=== PATIENT | male | born 1980 | race Caucasian/White ===

== ENCOUNTER 2018-06-05 18:32 | Emergency (ER) | payer OTHER ==
[~2018-06-05] VITALS: Ht 170.2 cm; Wt 59.7 kg
[~2018-06-05 18:32] MED LIST: ALBUAER19 INH; CLX20 PO; PRED20TA PO; RISP1TAB3 PO; TIZA4CAP PO
[2018-06-05 18:37] VITALS: TEMP 36.7; Ht 170.2 cm; Wt 59.7 kg
[2018-06-05] MEDS ORDERED: KETOROLAC TROMETHAMINE 60 MG/2 ML VIAL IM STA (18:48)
--- NOTE | 2018-06-05 19:53 | DIAGNOSTIC IMAGING REPORT ---
THORACIC SPINE 3 VIEWS ROUTINE HISTORY: Pain. Neuropathy. Back pain COMPARISON: None. FINDINGS: Findings consistent with laminectomy and fusion of the mid to lower thoracic region. Pre-existing compression deformity T9. No additional thoracic compression deformity. No subluxation. Disc spaces are preserved. IMPRESSION: Compression deformity T9 considered old. Extensive postoperative change. No acute process. The above report was generated using voice recognition software. It may contain grammatical, syntax or spelling errors. Electronically signed by: Sukhjindre Ochoa M.D. 06/05/2018 7:52 PM Dictated Date/Time: 06/05/2018 7:51 PM
--- NOTE | 2018-06-05 19:55 | DIAGNOSTIC IMAGING REPORT ---
L-SPINE MIN 4 VIEWS ROUTINE HISTORY: Back pain COMPARISON: None. FINDINGS: Compression deformity L1. This is considered nonacute. Findings of posterior laminectomy and fusion at L3, L2, T12, and T11. No subluxation. Disc spaces are preserved. IMPRESSION: Findings consistent with old trauma and postoperative change. No acute process. The above report was generated using voice recognition software. It may contain grammatical, syntax or spelling errors. Electronically signed by: Sukhjinder Ochoa M.D. 06/05/2018 7:53 PM Dictated Date/Time: 06/05/2018 7:52 PM
--- NOTE | 2018-06-05 20:00 | EMERGENCY ROOM VISIT NOTE ---
History Report prepared by Manuel: Pura Smalls Under the Supervision of: Ash DavisO. First contact with patient: 18:41 Chief Complaint: BACK PAIN Stated Complaint: CAN'T FEEL FINGERS/TOES, HURTS TO WALK, BACK PAIN History of Present Illness The patient is a 38 year old male who presents to the Emergency Room with complaints of numbness and tingling over the last 3 days. The patient reports having numbness and tingling in his hands and toes. The patient also reports that it is "difficult to walk." He also reports having neck pain that radiates into his back. He reports falling 3 days ago after his symptoms began which worsened his symptoms. The patient states that he was sitting when his symptoms began. The patient denies losing consciousness. He reports a history of back surgery in [place] after a 30 feet fall. The patient states that he has emphysema. Source of History: patient Onset: over the last 3 days Position: hand (bilateral), toe(s) Quality: numbness, other (tingling) Modifying Factors (Worsening): other (fall) Associated Symptoms: + neck pain, + back pain, No LOC Review of Systems See HPI for pertinent positives & negatives. A total of 10 systems reviewed and were otherwise negative. Past Medical & Surgical Medical Problems: (1) Asthma, Unspecified (2) Emphysema lung (3) Hypertension Nos (4) Narcotic abuse (5) Recurrent ventral hernia (6) Tobacco Use Disorder Family History Lung disease Social History Smoking Status: Current Every Day Smoker Alcohol Use: none Marital Status: single Housing Status: lives with family Current/Historical Medications Scheduled Albuterol Inhaler (Ventolin Inhaler), 2 PUFFS INH QID Citalopram (Citalopram Hydrobromide), 20 MG PO QAM Prednisone (Prednisone), 20 MG PO UD Risperidone (Risperdal), 1 MG PO HS Tizanidine (Zanaflex), 4 MG PO TID Allergies Coded Allergies: Tramadol (Verified Allergy, Unknown, swells up and hives, 09/21/14) Physical Exam Vital Signs Date Time Temp Pulse Resp B/P (MAP) Pulse Ox O2 Delivery O2 Flow Rate FiO2 06/05/18 20:21 70 18 130/76 98 Room Air 06/05/18 18:37 36.7 79 18 117/71 98 Room Air Physical Exam CONSTITUTIONAL/VITAL SIGNS: Reviewed / noted above. GENERAL: Non-toxic in appearance. INTEGUMENTARY: Warm, dry, and [place]. HEAD: Normocephalic. EYES: without scleral icterus or trauma. ENT/OROPHARYNX: clear and moist. LYMPHADENOPATHY/NECK: Is supple without lymphadenopathy or meningismus. RESPIRATORY: Lungs clear and equal. CARDIOVASCULAR: Regular rate and rhythm. GI/ABDOMEN: Soft and nontender. No organomegaly or pulsatile mass. No rebound or guarding. Normal bowel sounds. EXTREMITIES: Warm and well perfused. BACK: No CVA tenderness. NEUROLOGICAL: Intact without focal deficits. PSYCHIATRIC: normal affect. MUSCULOSKELETAL: Normally developed with good muscle tone. Medical Decision & Procedures ER Provider Diagnostic Interpretation: Radiology results as stated below per my review and radiologist interpretation: THORACIC SPINE 3 VIEWS ROUTINE HISTORY: Pain. Neuropathy. Back pain COMPARISON: None. FINDINGS: Findings consistent with laminectomy and fusion of the mid to lower thoracic region. Pre-existing compression deformity T9. No additional thoracic compression deformity. No subluxation. Disc spaces are preserved. IMPRESSION: Compression deformity T9 considered old. Extensive postoperative change. No acute process. The above report was generated using voice recognition software. It may contain grammatical, syntax or spelling errors. Electronically signed by: Sukhjinder Ochoa M.D. 06/05/2018 7:52 PM Dictated Date/Time: 06/05/2018 7:51 PM L-SPINE MIN 4 VIEWS ROUTINE HISTORY: Back pain COMPARISON: None. FINDINGS: Compression deformity L1. This is considered nonacute. Findings of posterior laminectomy and fusion at L3, L2, T12, and T11. No subluxation. Disc spaces are preserved. IMPRESSION: Findings consistent with old trauma and postoperative change. No acute process. The above report was generated using voice recognition software. It may contain grammatical, syntax or spelling errors. Electronically signed by: Sukhjinder Ochoa M.D. 06/05/2018 7:53 PM Dictated Date/Time: 06/05/2018 7:52 PM Laboratory Results Test 06/05/18 18:53 Bedside Glucose 103 mg/dl (70-99) Laboratory results as stated above per my review. Medications Administered Medications (Trade) Dose Ordered Sig/Yayo Route Start Time Stop Time Status Last Admin Dose Admin Ketorolac Tromethamine (Toradol Inj) 60 mg NOW STAT IM 06/05/18 18:48 06/05/18 18:49 DC 06/05/18 18:57 60 MG ED Course 1843: Previous medical records were reviewed. The patient was evaluated in room A2. A complete history and physical examination was performed. 1847: Ordered Toradol Inj 60 mg IM. 2019: On reevaluation, the patient is resting. I discussed the results and findings with the patient. He verbalized agreement of the treatment plan. He was discharged home. Medical Decision Differential considered includes cauda equina syndrome, conus medullaris, spinal cord compression syndrome, peripheral nerve compression, fractures or subluxations, intra-abdominal pathology such as abdominal aortic aneurysm or kidney stones, muscle strain, transverse myelitis, spinal cord injury. This is a 38-year-old male who presents to the ED with a chief complaint of hands and toes tingling and sharp pain in his back. The patient states that his symptoms started several days ago. He states that he has had the tingling in his hands and toes for a couple of weeks. He fell a few days ago and his symptoms worsen. The patient comes here for [place] for evaluation. His vital signs here are normal. His physical exam does not reveal any motor deficits. He does have previous back surgery from [place]. This is not recent. There is well-healed surgical scars in the back from this. The patient exam did not reveal any obvious trauma. He has no motor or sensory deficits on exam. X-rays of the spine reveals postsurgical changes but nothing acute. The patient was treated with IM Toradol. Blood sugar is 103. He was told the results. He is felt to be stable for discharge. [place] Drug Monitoring Program Search Results: patient reviewed within database Drug Monitoring Findings: The patient received Oxycodone on 03/31/18. Medication Reconcilliation Current Medication List: was personally reviewed by me Blood Pressure Screening Patient's blood pressure: Normal blood pressure Impression Primary Impression: Back pain Additional Impressions: Paresthesia of both hands Paresthesia of both feet Scribe Attestation The scribe's documentation has been prepared under my direction and personally reviewed by me in its entirety. I confirm that the note above accurately reflects all work, treatment, procedures, and medical decision making performed by me. Departure Information Dispostion Home / Self-Care Referrals Slim Young D.O. (PCP) Forms HOME CARE DOCUMENTATION FORM, IMPORTANT VISIT INFORMATION Patient Instructions My [facility] Additional Instructions Take Tylenol Motrin for pain. Follow-up with your doctor for further care and evaluation in 1-2 days. Return to the emergency department for worsening or new symptoms or any concerns. You have been examined and treated today on an emergency basis only. This is not a substitute for, or an effort to provide, complete comprehensive medical care. It is impossible to recognize and treat all injuries or illnesses in a single emergency department visit. It is therefore important that you follow up closely with your doctor. Call as soon as possible for an appointment. Problem Qualifiers
[2018-06-05 20:21] VITALS: BP 130/76; PULSE 70; O2SAT 98
== END 2018-06-05 20:45 | disposition home or self-care (01) ==
LOC: C.EDB 18:34 → C.EDA 20:45
DX: M54.9 Dorsalgia, unspecified (principal); R20.2 Paresthesia of skin; Z98.1 Arthrodesis status; R26.2 Difficulty in walking, not elsewhere classified; J43.9 Emphysema, unspecified; F17.210 Nicotine dependence, cigarettes, uncomplicated; Z79.899 Other long term (current) drug therapy; Z88.8 Allergy status to other drugs, medicaments and biological substances; I10 Essential (primary) hypertension; Z83.6 Family history of other diseases of the respiratory system